=== PATIENT | female | born 1995 | race Caucasian/White ===

== ENCOUNTER 2020-04-12 20:13 | Emergency (ER) | payer OTHER ==
[~2020-04-12] VITALS: Ht 165.1 cm; Wt 59.0 kg
[2020-04-12] MEDS ORDERED: LEXAPRO 10 MG T10 M2 PO (20:25)
[2020-04-12] MEDS ORDERED: ZYRTEC10 M5 PO (20:25)
[2020-04-12 20:54] LABS: INFLUENZA A ANTIGEN Negative (Negative); INFLUENZA B ANTIGEN Negative (Negative)
[2020-04-12 21:10] VITALS: BP 145/65
== END 2020-04-12 21:10 | disposition home or self-care (01) ==
LOC: M.ERS 20:13
PROVIDERS: Nurse Practitioner Family
DX: Z20.828 Contact with and (suspected) exposure to other viral communicable diseases (principal); Z88.1 Allergy status to other antibiotic agents